=== PATIENT | male | born 1980 | race Caucasian/White ===

== ENCOUNTER 2017-12-20 00:45 | Inpatient (IN) | payer MEDICAID, OTHER ==
[~2017-12-20] VITALS: Ht 182.9 cm; Wt 99.3 kg
[2017-12-20] MEDS ORDERED: METOPROLOL TARTRATE 25 MG TAB ONE (01:17)
[2017-12-20 01:27] LABS: Basophils # (auto) 0 uL; Basophils % (auto) 0.5 % (0.0-2.0); Eosinophils # (auto) 0 uL; Eosinophils % (auto) 0.2 % (0.0-7.0); Hemoglobin 16.1 g/dL (13.5-17.5); Lymphocytes # (auto) 2.1 uL; Lymphocytes % (auto) 25.8 % (10.0-50.0); Mean Corpuscular Hemoglobin 31.2 pg (28.0-32.0); Mean Corpuscular Hgb Conc. 33.5 g/dL (32.0-36.0); Mean Corpuscular Volume 93.1 fL (80.0-100.0); Monocytes # (auto) 0.5 uL; Monocytes % (auto) 6.5 % (0.0-12.0); Neutrophils # (auto) 5.6 uL; Platelet Count (auto) 278 10^3/uL (140-450); Red Blood Cells 5.16 10^6/uL (4.5-5.90); Red Cell Distribution Width 15.2 % (11.8-14.3); White Blood Cell 8.3 10^3/uL (4.4-10.8)
[2017-12-20] MEDS ORDERED: METOPROLOL TARTRATE 50 MG TAB PO ONE (01:30)
[2017-12-20 01:44] LABS: INR 0.97 (0.9-1.15); Partial Thromboplastin Time 30.7 sec (22.64-33.71); Prothrombin Time 10.6 sec (9.37-12.3)
[2017-12-20 01:46] LABS: Alanine Aminotransferase 10 U/L (16-61); Albumin 3.8 g/dL (3.4-5.0); Anion Gap 27 (5-15); Aspartate Aminotransferase 5 U/L (15-37); BUN/Creatinine Ratio 9.9; Blood Urea Nitrogen 15 mg/dL (7-18); Calcium 8.7 mg/dL (8.5-10.1); Chloride 105 mmol/L (98-107); GFR African American 67 mL/min; GFR Non-African American 55 mL/min; Glucose 400 mg/dL (74-106); Potassium 3.4 mmol/L (3.5-5.1); Sodium 138 mmol/L (136-145)
[2017-12-20 01:47] LABS: Carbon Dioxide 6 mmol/L (21-32)
[2017-12-20 01:50] LABS: Alkaline Phosphatase 125 U/L (45-117); Bilirubin, Total 0.4 mg/dL (0.2-1.0); Total Protein 8.7 g/dL (6.4-8.2)
[2017-12-20] MEDS: InsuLIN R (HUMAN) 100 UNITS in SODIUM CHL 0.9% 99 ML IV SCH ×3 (01:54→13:47)
[2017-12-20] MEDS ORDERED: SODIUM CHLORIDE 0.9% 3,000 ML IV ONE (02:00)
[2017-12-20] MEDS ORDERED: DEXTROSE (50%) 50ML SYRG IV PRN ×2 (02:00→07:30)
[2017-12-20] MEDS ORDERED: SODIUM BICARBONATE 8.4 % INJ 50ML VIAL IV ONE (02:00)
[2017-12-20] MEDS ORDERED: POTASSIUM CHL 20MEQ/100ML 100 ML IV ONE (02:00)
[2017-12-20] MEDS ORDERED: InsuLIN REG 1unit/0.01ml Soln (100units/ml) ONE (02:09)
[2017-12-20] MEDS: ACCU-CHEK COMFORT CURVE STRIP VI SCH ×15 (03:23→22:36)
[2017-12-20 05:38] LABS: Urine WBC None Seen /hpf (0 - 3)
[2017-12-20 05:52] LABS: Urine Bacteria NONE SEEN /hpf (None Seen); Urine Blood Negative /uL (Negative); Urine Hyaline Cast FEW /lpf (0 - 2); Urine Specific Gravity 1.018 (1.001-1.035)
[2017-12-20] MEDS ORDERED: ONDANSETRON HCL 4 MG/2 ML VIAL ONE (06:39)
[2017-12-20] MEDS ORDERED: LACTULOSE 20Gm/30ML SOLN PO PRN (07:30)
[2017-12-20] MEDS ORDERED: HYDROcodone-ACET 5/325MG TAB PO PRN (07:30)
[2017-12-20] MEDS ORDERED: TEMAZEPAM 15 MG CAP PO PRN (07:30)
[2017-12-20] MEDS ORDERED: ACETAMINOPHEN 500 MG TAB PO PRN (07:30)
[2017-12-20] MEDS ORDERED: LORazepam 0.5 MG TAB PO PRN (07:30)
[2017-12-20] MEDS ORDERED: MORPHINE SULFATE 4 MG/ML SYR/VIAL IV PRN ×2 (07:30)
[2017-12-20] MEDS ORDERED: NITROGLYCERIN 0.4 MG SL TAB SL PRN (07:30)
[2017-12-20] MEDS ORDERED: PROMETHAZINE HCL 25 MG/ML 1ML IV PRN (07:30)
[2017-12-20] MEDS: SODIUM CHLORIDE 0.9% 1,000 ML IV SCH ×2 (07:32→08:59)
[2017-12-20 08:15] LABS: BUN/Creatinine Ratio 10.8; Potassium 3.7 mmol/L (3.5-5.1)
[2017-12-20] MEDS ORDERED: SODIUM CHLORIDE 0.9% 1,000 ML IV SCH ×2 (11:17→13:17)
[2017-12-20 14:11] LABS: BUN/Creatinine Ratio 8.7; Calcium 7.9 mg/dL (8.5-10.1); Potassium 3.4 mmol/L (3.5-5.1)
[2017-12-20] MEDS: SOD CHL 0.45% WITH 20MEQ KCL 1,000 ML IV SCH ×2 (15:38→22:43)
[2017-12-20 20:01] LABS: BUN/Creatinine Ratio 6.9; Potassium 3.2 mmol/L (3.5-5.1)
[2017-12-20] MEDS ORDERED: POTASSIUM PHOSPHATE 44 MEQ in D5W 5% 250 ML IV ONE (22:00)
[2017-12-21] MEDS: ACCU-CHEK COMFORT CURVE STRIP VI SCH ×6 (00:34→07:37)
[2017-12-21 01:56] LABS: BUN/Creatinine Ratio 5.8; Calcium 8.5 mg/dL (8.5-10.1)
[2017-12-21 02:06] LABS: Potassium 2.9 mmol/L (3.5-5.1)
[2017-12-21] MEDS: InsuLIN R (HUMAN) 100 UNITS in SODIUM CHL 0.9% 99 ML IV SCH (02:08)
[2017-12-21] MEDS ORDERED: POTASSIUM CHL 20 Meq TABLET PO ONE (02:45)
[2017-12-21 06:00] LABS: Basophils # (auto) 0 uL; Basophils % (auto) 0.9 % (0.0-2.0); Eosinophils # (auto) 0 uL; Eosinophils % (auto) 0.6 % (0.0-7.0); Lymphocytes # (auto) 1.6 uL; Lymphocytes % (auto) 32.1 % (10.0-50.0); Mean Corpuscular Hemoglobin 31.4 pg (28.0-32.0); Mean Corpuscular Hgb Conc. 34.3 g/dL (32.0-36.0); Mean Corpuscular Volume 91.4 fL (80.0-100.0); Monocytes # (auto) 0.5 uL; Monocytes % (auto) 10.5 % (0.0-12.0); Neutrophils # (auto) 2.8 uL; Neutrophils % (auto) 55.9 % (37.0-80.0); Nucleated Red Blood Cells % 0.1 %; Platelet Count (auto) 197 10^3/uL (140-450); Red Blood Cells 4.15 10^6/uL (4.5-5.90); Red Cell Distribution Width 15.7 % (11.8-14.3)
[2017-12-21 06:27] LABS: Alanine Aminotransferase 9 U/L (16-61); Albumin 2.7 g/dL (3.4-5.0); Alkaline Phosphatase 82 U/L (45-117); Anion Gap 13 (5-15); Aspartate Aminotransferase < 3 U/L (15-37); BUN/Creatinine Ratio 7.1; Bilirubin, Total 0.4 mg/dL (0.2-1.0); Blood Urea Nitrogen 6 mg/dL (7-18); Carbon Dioxide 15 mmol/L (21-32); Chloride 115 mmol/L (98-107); Cholesterol 194 mg/dL (< 200); GFR African American 132 mL/min; GFR Non-African American 109 mL/min; Glucose 194 mg/dL (74-106); HDL Cholesterol 28 mg/dL (40-59); LDL Cholesterol 141 mg/dL (< 100); Phosphorus 1.2 mg/dL (2.5-4.90); Sodium 143 mmol/L (136-145); Total Protein 6.4 g/dL (6.4-8.2); Triglycerides 158 mg/dL (< 150)
[2017-12-21] MEDS: SOD CHL 0.45% WITH 20MEQ KCL 1,000 ML IV SCH (07:37)
[2017-12-21] MEDS ORDERED: POTASSIUM PHOSPHATE 44 MEQ in D5W 5% 250 ML IV ONE (08:30)
[2017-12-21] MEDS ORDERED: DEXTROSE (50%) 50ML SYRG IV PRN (08:30)
[2017-12-21] MEDS ORDERED: INSULIN LANTUS (GLARGINE) 1 /0.01ml (100units/ml) SC ONE (08:30)
[2017-12-21] MEDS ORDERED: ACCU-CHEK COMFORT CURVE STRIP VI SCH (11:30)
[2017-12-21] MEDS: InsuLIN REG 1unit/0.01ml Soln (100units/ml) SC SCH ×3 (11:40→21:12)
[2017-12-21 17:20] VITALS: BP 122/76
[2017-12-21] MEDS ORDERED: metFORMIN HYDROCHLORIDE 500 MG TAB PO SCH (18:00)
[2017-12-21] MEDS ORDERED: INSULIN LANTUS (GLARGINE) 1 /0.01ml (100units/ml) SC SCH (22:00)
[2017-12-21] MEDS ORDERED: ATORVASTATIN 20 MG TAB PO SCH (22:00)
[2017-12-21] MEDS ORDERED: InsuLIN REG 1unit/0.01ml Soln (100units/ml) SC SCH (22:00)
[2017-12-21 22:07] VITALS: BP 120/71
[2017-12-22 05:00] VITALS: BP_SYST 109; BP_SYST 150; BP_DIAS 60; BP_DIAS 78
[2017-12-22 05:21] LABS: Basophils # (auto) 0 uL; Basophils % (auto) 0.4 % (0.0-2.0); Eosinophils # (auto) 0 uL; Eosinophils % (auto) 0.9 % (0.0-7.0); Hematocrit 38.3 % (41.0-53.0); Hemoglobin 13.1 g/dL (13.5-17.5); Lymphocytes # (auto) 1.8 uL; Lymphocytes % (auto) 43.1 % (10.0-50.0); Mean Corpuscular Hemoglobin 30.8 pg (28.0-32.0); Mean Corpuscular Hgb Conc. 34.1 g/dL (32.0-36.0); Mean Corpuscular Volume 90.3 fL (80.0-100.0); Monocytes # (auto) 0.5 uL; Monocytes % (auto) 10.8 % (0.0-12.0); Neutrophils # (auto) 1.9 uL; Neutrophils % (auto) 44.8 % (37.0-80.0); Nucleated Red Blood Cells % 0.2 %; Platelet Count (auto) 193 10^3/uL (140-450); Red Blood Cells 4.25 10^6/uL (4.5-5.90); Red Cell Distribution Width 15.7 % (11.8-14.3); White Blood Cell 4.2 10^3/uL (4.4-10.8)
[2017-12-22 05:41] LABS: BUN/Creatinine Ratio 6.5; Calcium 8.7 mg/dL (8.5-10.1); Potassium 3.3 mmol/L (3.5-5.1)
[2017-12-22 06:16] LABS: Phosphorus 2.4 mg/dL (2.5-4.90)
[2017-12-22] MEDS ORDERED: INSULIN LANTUS (GLARGINE) 1 /0.01ml (100units/ml) SC SCH (07:00)
[2017-12-22] MEDS ORDERED: metFORMIN HYDROCHLORIDE 500 MG TAB PO SCH (08:00)
[2017-12-22] MEDS ORDERED: POTASSIUM PHOSPHATE 26.4 MEQ in SODIUM CHL 0.9% 100 ML IV ONE (08:00)
[2017-12-22 08:15] VITALS: BP 108/61
[2017-12-22] MEDS ORDERED: METF500T PO (08:29)
[2017-12-22] MEDS ORDERED: ATOR20TA50 PO (08:29)
[2017-12-22 11:47] VITALS: BP 113/66
[2017-12-22] MEDS: InsuLIN REG 1unit/0.01ml Soln (100units/ml) SC SCH (12:14)
== END 2017-12-22 15:45 | disposition home or self-care (01) | DRG 420 ==
LOC: ER 00:47 → TELE 00:48 → TELE-WESTW 12-21 15:40 → WEST WING 12-21 15:48
PROVIDERS: ADMIT Nurse Practitioner; ATTEND Internal Medicine
DX: E11.10 Type 2 diabetes mellitus with ketoacidosis without coma (principal); N17.0 Acute kidney failure with tubular necrosis; E87.0 Hyperosmolality and hypernatremia; E86.0 Dehydration; E83.39 Other disorders of phosphorus metabolism; E87.6 Hypokalemia; K59.00 Constipation, unspecified; F41.9 Anxiety disorder, unspecified; G47.00 Insomnia, unspecified; Z82.49 Family history of ischemic heart disease and other diseases of the circulatory system; Z83.3 Family history of diabetes mellitus
CPT/HCPCS: 36415; 36600; 71045; 80048; 80053; 80061; 81001; 82010; 82805; 82962; 83036; 83880; 84100; 84484; 85025; 85610; 85730; 93005; 96361; 96374; J1815; J2405; J3480; J7060

== ENCOUNTER 2022-03-26 12:14 | Inpatient (IN) | payer MEDICAID ==
[~2022-03-26] VITALS: Ht 182.9 cm; Wt 111.5 kg
[~2022-03-26 12:14] MED LIST: ATOR20TA50 PO; METF500T PO
[2022-03-26 14:29] LABS: Basophils # (auto) 0.1 10 ^3/uL (0-0.2); Basophils % (auto) 0.8 % (0.0-2.0); Eosinophils # (auto) 0.1 10 ^3/uL (0-0.8); Eosinophils % (auto) 1.6 % (0.0-7.0); Hematocrit 44.4 % (41.0-53.0); Lymphocytes % (auto) 29.1 % (10.0-50.0); Mean Corpuscular Hemoglobin 28.8 pg (28.0-32.0); Mean Corpuscular Hgb Conc. 33.8 g/dL (32.0-36.0); Mean Corpuscular Volume 85.2 fL (80.0-100.0); Monocytes # (auto) 0.4 10 ^3/uL (0-1.3); Monocytes % (auto) 5.6 % (0.0-12.0); Neutrophils # (auto) 4.3 10 ^3/uL (1.6-8.6); Neutrophils % (auto) 62.9 % (37.0-80.0); Red Blood Cells 5.21 10^6/uL (4.5-5.90); Red Cell Distribution Width 13.9 % (11.8-14.3); White Blood Cell 6.8 10^3/uL (4.4-10.8)
[2022-03-26 14:46] LABS: Albumin 3.7 g/dL (3.4-5.0); Calcium 8.7 mg/dL (8.5-10.1); Potassium 4.1 mmol/L (3.5-5.1)
[2022-03-26 14:49] LABS: Lactic Acid w/Reflex 2.3 mmol/L (0.4-2.0)
[2022-03-26 14:56] LABS: BUN/Creatinine Ratio 12.2; Bilirubin, Total 0.5 mg/dL (0.2-1.0); CRP High Sensitivity 1.03 mg/dL (< 0.3); Total Protein 8.2 g/dL (6.4-8.2)
[2022-03-26] MEDS ORDERED: SODIUM CHLORIDE 0.9% 1,000 ML IV ONE (19:15)
[2022-03-26] MEDS ORDERED: VANCOMYCIN 1GM/250ML 250 ML IV ONE (19:15)
[2022-03-26] MEDS: PIPERACILLIN-TAZOB 3.375GM 100 ML IV SCH (19:30)
[2022-03-26] MEDS ORDERED: VANCOMYCIN PER PHARMACY 0 MG IV SCH (19:30)
[2022-03-26] MEDS ORDERED: MORPHINE SULFATE INJECTION 2 MG/ML SYRG IV PRN (19:30)
[2022-03-26] MEDS ORDERED: HYDROcodone-ACET 5/325MG TAB PO PRN (19:30)
[2022-03-26] MEDS ORDERED: ONDANSETRON HCL 4 MG/2 ML VIAL IV PRN (19:30)
[2022-03-26] MEDS ORDERED: DOCUSATE SOD 100 MG CAP PO PRN (19:30)
[2022-03-26] MEDS ORDERED: ACETAMINOPHEN 325 MG TAB PO PRN (19:30)
[2022-03-26] MEDS: SODIUM CHLORIDE 0.9% 1,000 ML IV SCH (20:30)
[2022-03-27 01:40] VITALS: BP 134/84
[2022-03-27] MEDS ORDERED: METF-372 PO (01:50)
[2022-03-27] MEDS ORDERED: GLIP10TA9 PO (01:50)
[2022-03-27] MEDS ORDERED: INSU1INJ19 SC (01:50)
[2022-03-27 05:15] VITALS: BP 127/73
[2022-03-27] MEDS: PIPERACILLIN-TAZOB 3.375GM 100 ML IV SCH ×5 (05:40→23:55)
[2022-03-27 09:00] VITALS: BP 147/84
[2022-03-27] MEDS: VANCOMYCIN 1GM/250ML 250 ML IV SCH ×2 (10:21→17:23)
[2022-03-27] MEDS: ENOXAPARIN SOD 40 MG/0.4 ML SYRINGE SC SCH (10:21)
[2022-03-27] MEDS ORDERED: DEXTROSE (50%) 50ML SYRG IV PRN (12:15)
[2022-03-27 13:00] VITALS: BP 130/82
[2022-03-27] MEDS: ACCU-CHEK COMFORT CURVE STRIP VI SCH ×2 (17:23→22:00)
[2022-03-27] MEDS: InsuLIN REG 1unit/0.01ml Soln (100units/ml) SC SCH ×2 (17:26→22:04)
[2022-03-27 18:00] VITALS: BP 143/79
[2022-03-27] MEDS: SODIUM CHLORIDE 0.9% 1,000 ML IV SCH ×3 (20:30→23:55)
[2022-03-27 22:00] VITALS: BP 120/84
[2022-03-27] MEDS: INSULIN LANTUS (GLARGINE) 1 /0.01ml (100units/ml) SC SCH (22:04)
[2022-03-28] MEDS: VANCOMYCIN 1GM/250ML 250 ML IV SCH (01:56)
[2022-03-28 05:00] VITALS: BP 133/78
[2022-03-28] MEDS: PIPERACILLIN-TAZOB 3.375GM 100 ML IV SCH (05:32)
[2022-03-28] MEDS: ACCU-CHEK COMFORT CURVE STRIP VI SCH ×4 (05:57→21:27)
[2022-03-28] MEDS: InsuLIN REG 1unit/0.01ml Soln (100units/ml) SC SCH ×4 (05:59→21:25)
[2022-03-28 09:00] VITALS: BP 109/47
[2022-03-28] MEDS: ENOXAPARIN SOD 40 MG/0.4 ML SYRINGE SC SCH (10:00)
[2022-03-28] MEDS: SODIUM CHLORIDE 0.9% 1,000 ML IV SCH ×2 (12:14→21:30)
[2022-03-28 12:30] VITALS: BP 124/88
[2022-03-28] MEDS ORDERED: VANCOMYCIN 1,250 MG in D5W 5% 250 ML IV SCH (13:00)
[2022-03-28] MEDS ORDERED: AMOX-277 PO (13:26)
[2022-03-28 17:00] VITALS: BP 114/81
[2022-03-28] MEDS: AMOXICILLIN/CLAVUL 875 MG TAB PO SCH (18:00)
[2022-03-28] MEDS: INSULIN LANTUS (GLARGINE) 1 /0.01ml (100units/ml) SC SCH (21:26)
[2022-03-28 22:00] VITALS: BP 144/82
[2022-03-29 05:00] VITALS: BP 116/72
[2022-03-29] MEDS: SODIUM CHLORIDE 0.9% 1,000 ML IV SCH ×2 (05:49→14:10)
[2022-03-29] MEDS: InsuLIN REG 1unit/0.01ml Soln (100units/ml) SC SCH ×3 (06:35→17:00)
[2022-03-29] MEDS: ACCU-CHEK COMFORT CURVE STRIP VI SCH ×3 (06:36→17:00)
[2022-03-29] MEDS: AMOXICILLIN/CLAVUL 875 MG TAB PO SCH ×2 (08:00→18:00)
[2022-03-29 09:00] VITALS: BP 129/55
[2022-03-29 09:58] LABS: Albumin 2.8 g/dL (3.4-5.0); Potassium 3.8 mmol/L (3.5-5.1)
[2022-03-29] MEDS: ENOXAPARIN SOD 40 MG/0.4 ML SYRINGE SC SCH (10:00)
[2022-03-29 10:03] LABS: BUN/Creatinine Ratio 12.7; Bilirubin, Total 0.5 mg/dL (0.2-1.0); Total Protein 6.4 g/dL (6.4-8.2)
[2022-03-29 13:19] VITALS: BP 159/85
[2022-03-29 17:00] VITALS: BP 116/69
[2022-03-29 20:10] VITALS: BP 147/87
== END 2022-03-29 21:08 | disposition home or self-care (01) | DRG 380 ==
LOC: ER 12:14 → OVERFLOW 19:26 → WEST WING 22:41
PROVIDERS: ADMIT Internal Medicine; ATTEND Internal Medicine
DX: E11.621 Type 2 diabetes mellitus with foot ulcer (principal); L97.519 Non-pressure chronic ulcer of other part of right foot with unspecified severity; E87.2 Acidosis; L03.115 Cellulitis of right lower limb; Z20.822 Contact with and (suspected) exposure to COVID-19; Z79.4 Long term (current) use of insulin; Z82.49 Family history of ischemic heart disease and other diseases of the circulatory system; Z83.3 Family history of diabetes mellitus
CPT/HCPCS: 36415; 73700; 73718; 80053; 80202; 82565; 82962; 83605; 85025; 85652; 86141; 87040; 96365; G0378; J1815; J2543; J7060

== ENCOUNTER 2022-11-15 05:36 | Inpatient (IN) | payer MEDICAID ==
[~2022-11-15] VITALS: Ht 182.9 cm; Wt 106.2 kg
[~2022-11-15 05:36] MED LIST changes: +AMOX-277 PO; +GLIP10TA9 PO; +INSU1INJ19 SC; +METF-372 PO
[2022-11-15] MEDS ORDERED: ONDANSETRON HCL 4 MG/2 ML VIAL ONE (06:17)
[2022-11-15] MEDS ORDERED: ONDANSETRON HCL 4 MG/2 ML VIAL IM ONE (06:30)
[2022-11-15] MEDS ORDERED: INSULIN LANTUS (GLARGINE) 1 /0.01ml (100units/ml) SC ONE (07:00)
[2022-11-15] MEDS ORDERED: DEXTROSE (50%) 50ML SYRG IV PRN ×2 (07:00→20:45)
[2022-11-15] MEDS ORDERED: InsuLIN R (HUMAN) 100 UNITS in SODIUM CHL 0.9% 99 ML IV SCH (07:00)
[2022-11-15] MEDS ORDERED: SODIUM CHLORIDE 0.9% 1,000 ML IV ONE ×2 (07:00)
[2022-11-15 07:29] LABS: Basophils # (auto) 0.1 10 ^3/uL (0-0.2); Basophils % (auto) 0.9 % (0.0-2.0); Eosinophils # (auto) 0 10 ^3/uL (0-0.8); Eosinophils % (auto) 0.4 % (0.0-7.0); Hemoglobin 15.5 g/dL (13.5-17.5); Lymphocytes # (auto) 1.3 10 ^3/uL (0.4-5.4); Mean Corpuscular Hemoglobin 29.9 pg (28.0-32.0); Mean Corpuscular Hgb Conc. 33.8 g/dL (32.0-36.0); Mean Corpuscular Volume 88.7 fL (80.0-100.0); Monocytes # (auto) 0.6 10 ^3/uL (0-1.3); Monocytes % (auto) 7.3 % (0.0-12.0); Neutrophils # (auto) 5.8 10 ^3/uL (1.6-8.6); Neutrophils % (auto) 74.4 % (37.0-80.0); Nucleated Red Blood Cells % 0.1 %; Red Blood Cells 5.18 10^6/uL (4.5-5.90); Red Cell Distribution Width 14.9 % (11.8-14.3); White Blood Cell 7.8 10^3/uL (4.4-10.8)
[2022-11-15 07:33] LABS: Alanine Aminotransferase 16 U/L (16-61); Albumin 3.8 g/dL (3.4-5.0); Anion Gap 18 (5-15); Aspartate Aminotransferase < 3 U/L (15-37); BUN/Creatinine Ratio 13.4; Blood Urea Nitrogen 15 mg/dL (7-18); Calcium 8.4 mg/dL (8.5-10.1); Carbon Dioxide 14 mmol/L (21-32); Chloride 106 mmol/L (98-107); GFR African American 92 mL/min; GFR Non-African American 76 mL/min; Glucose 327 mg/dL (74-106); Potassium 3.7 mmol/L (3.5-5.1); Sodium 138 mmol/L (136-145)
[2022-11-15 07:36] LABS: Alkaline Phosphatase 106 U/L (45-117); Bilirubin, Total 0.6 mg/dL (0.2-1.0); Total Protein 7.4 g/dL (6.4-8.2)
[2022-11-15] MEDS: ACCU-CHEK COMFORT CURVE STRIP VI SCH ×10 (07:47→22:15)
[2022-11-15] MEDS ORDERED: MORPHINE SULFATE INJ 2 MG/ml SYRG IV PRN (09:15)
[2022-11-15] MEDS ORDERED: NITROGLYCERIN 0.4 MG SL TAB SL PRN (09:15)
[2022-11-15] MEDS ORDERED: D5W/SOD CHL 0.9%/KCL 40MEQ 1,000 ML IV ONE (09:15)
[2022-11-15 10:17] LABS: Cholesterol 264 mg/dL (< 200); HDL Cholesterol 35 mg/dL (40-59); Triglycerides 559 mg/dL (< 150)
[2022-11-15] MEDS: PANTOPRAZOLE 40 MG/10 ML VIAL INJ IV SCH (11:37)
[2022-11-15] MEDS: ENOXAPARIN SOD 40 MG/0.4 ML SYRINGE SC SCH (11:37)
[2022-11-15 12:35] LABS: BUN/Creatinine Ratio 12.7; Calcium 7.9 mg/dL (8.5-10.1); Potassium 4.2 mmol/L (3.5-5.1)
[2022-11-15 14:31] LABS: Urine Bacteria NONE SEEN /hpf (None Seen); Urine Blood TRACE /uL (Negative); Urine WBC 2 /hpf (0 - 3)
[2022-11-15] MEDS: ONDANSETRON HCL 4 MG/2 ML VIAL IV PRN (18:47)
[2022-11-15 19:16] LABS: Calcium 8.1 mg/dL (8.5-10.1); Potassium 4.1 mmol/L (3.5-5.1)
[2022-11-15 19:19] LABS: BUN/Creatinine Ratio 7.4
[2022-11-15] MEDS ORDERED: SOD CHL 0.45% 1,000 ML IV SCH (20:45)
[2022-11-15] MEDS: InsuLIN REG 1unit/0.01ml Soln (100units/ml) SC SCH (22:19)
[2022-11-16 01:00] LABS: BUN/Creatinine Ratio 7.1; Calcium 8.2 mg/dL (8.5-10.1); Potassium 3.9 mmol/L (3.5-5.1)
[2022-11-16] MEDS: ONDANSETRON HCL 4 MG/2 ML VIAL IV PRN ×2 (01:09→22:05)
[2022-11-16] MEDS: ACCU-CHEK COMFORT CURVE STRIP VI SCH ×4 (06:36→22:07)
[2022-11-16] MEDS: InsuLIN REG 1unit/0.01ml Soln (100units/ml) SC SCH ×4 (06:40→21:59)
[2022-11-16 07:20] LABS: BUN/Creatinine Ratio 7.1; Calcium 8.6 mg/dL (8.5-10.1); Potassium 3.7 mmol/L (3.5-5.1)
[2022-11-16 07:27] LABS: Basophils # (auto) 0 10 ^3/uL (0-0.2); Basophils % (auto) 0.4 % (0.0-2.0); Eosinophils # (auto) 0 10 ^3/uL (0-0.8); Hemoglobin 13.8 g/dL (13.5-17.5); Lymphocytes # (auto) 1.2 10 ^3/uL (0.4-5.4); Lymphocytes % (auto) 17.4 % (10.0-50.0); Mean Corpuscular Hemoglobin 29.8 pg (28.0-32.0); Mean Corpuscular Hgb Conc. 33.6 g/dL (32.0-36.0); Mean Corpuscular Volume 88.6 fL (80.0-100.0); Monocytes # (auto) 0.5 10 ^3/uL (0-1.3); Monocytes % (auto) 7.9 % (0.0-12.0); Neutrophils # (auto) 5.1 10 ^3/uL (1.6-8.6); Neutrophils % (auto) 74.3 % (37.0-80.0); Nucleated Red Blood Cells % 0.1 %; Red Blood Cells 4.63 10^6/uL (4.5-5.90); Red Cell Distribution Width 15.3 % (11.8-14.3); White Blood Cell 6.9 10^3/uL (4.4-10.8)
[2022-11-16] MEDS ORDERED: INSULIN LANTUS (GLARGINE) 1 /0.01ml (100units/ml) SC SCH ×2 (10:00→22:00)
[2022-11-16] MEDS: ENOXAPARIN SOD 40 MG/0.4 ML SYRINGE SC SCH (10:05)
[2022-11-16] MEDS: PANTOPRAZOLE 40 MG/10 ML VIAL INJ IV SCH (10:05)
[2022-11-16] MEDS ORDERED: SOD CHL 0.45% WITH 20MEQ KCL 1,000 ML IV SCH (11:45)
[2022-11-16] MEDS ORDERED: INSULIN NPH Isophane (HUMAN) 1unit/0.01ml Susp(100units/ml) SC ONE (11:45)
[2022-11-16 12:55] LABS: BUN/Creatinine Ratio 5.7; Calcium 8.3 mg/dL (8.5-10.1); Potassium 3.5 mmol/L (3.5-5.1)
[2022-11-16 16:01] VITALS: BP 129/76
[2022-11-16 17:07] VITALS: BP 129/76
[2022-11-16] MEDS: SOD CHL 0.45% WITH 20MEQ KCL 1,000 ML IV SCH (17:53)
[2022-11-16 18:23] VITALS: BP 129/76
[2022-11-16 19:10] LABS: BUN/Creatinine Ratio 6.7; Calcium 8.6 mg/dL (8.5-10.1); Potassium 3.4 mmol/L (3.5-5.1)
[2022-11-16 22:00] VITALS: BP 126/71
[2022-11-16] MEDS ORDERED: ATORVASTATIN 20 MG TAB PO SCH (22:00)
[2022-11-17 05:00] VITALS: BP 134/80
[2022-11-17] MEDS: SOD CHL 0.45% WITH 20MEQ KCL 1,000 ML IV SCH (05:50)
[2022-11-17] MEDS: InsuLIN REG 1unit/0.01ml Soln (100units/ml) SC SCH ×2 (06:29→11:10)
[2022-11-17] MEDS: ACCU-CHEK COMFORT CURVE STRIP VI SCH ×2 (06:40→11:09)
[2022-11-17 09:00] VITALS: BP 154/84
[2022-11-17] MEDS: ENOXAPARIN SOD 40 MG/0.4 ML SYRINGE SC SCH (10:38)
[2022-11-17] MEDS ORDERED: ASPI81CH49 PO (14:49)
[2022-11-17] MEDS ORDERED: ATOR20TA50 PO (14:49)
[2022-11-17] MEDS ORDERED: INSU100I49 SC (14:49)
[2022-11-17] MEDS ORDERED: INSLANTI SC (14:49)
[2022-11-17] MEDS ORDERED: METF-370 PO (14:49)
[2022-11-17] MEDS ORDERED: ATO40T PO (14:51)
== END 2022-11-17 17:11 | disposition home or self-care (01) | DRG 420 ==
LOC: ER 05:36 → TELE 09:11 → TELE-WESTW 11-16 15:58
PROVIDERS: ADMIT Registered Nurse; ATTEND Student in an Organized Health Care Education/Training Program
DX: E11.10 Type 2 diabetes mellitus with ketoacidosis without coma (principal); E66.01 Morbid (severe) obesity due to excess calories; E78.5 Hyperlipidemia, unspecified; Z20.822 Contact with and (suspected) exposure to COVID-19; E78.1 Pure hyperglyceridemia; Z91.14 Patient's other noncompliance with medication regimen; Z79.4 Long term (current) use of insulin; Z82.49 Family history of ischemic heart disease and other diseases of the circulatory system; Z83.3 Family history of diabetes mellitus; Z68.31 Body mass index [BMI] 31.0-31.9, adult
CPT/HCPCS: 36415; 36600; 71045; 80048; 80053; 80061; 81001; 82010; 82805; 82962; 83036; 84443; 85025; 87040; 87086; 87426; 96360; 96361; 96372; 99291; C9113; G0378; J1815; J2405

== ENCOUNTER 2022-12-01 22:01 | Inpatient (IN) | payer MEDICAID ==
[~2022-12-01] VITALS: Ht 182.9 cm; Wt 104.5 kg
[~2022-12-01 22:01] MED LIST changes: +ASPI81CH49 PO; +ATO40T PO; +INSLANTI SC; +INSU100I49 SC; +METF-370 PO
[2022-12-01] MEDS ORDERED: ONDANSETRON ODT 4 MG TAB PO ONE (22:30)
[2022-12-01 23:15] LABS: Basophils # (auto) 0 10 ^3/uL (0-0.2); Basophils % (auto) 0.1 % (0.0-2.0); Eosinophils # (auto) 0.2 10 ^3/uL (0-0.8); Eosinophils % (auto) 1.4 % (0.0-7.0); Hematocrit 49.8 % (41.0-53.0); Hemoglobin 16.6 g/dL (13.5-17.5); Lymphocytes # (auto) 1.8 10 ^3/uL (0.4-5.4); Lymphocytes % (auto) 16.9 % (10.0-50.0); Mean Corpuscular Hgb Conc. 33.3 g/dL (32.0-36.0); Mean Corpuscular Volume 90.3 fL (80.0-100.0); Monocytes # (auto) 0.9 10 ^3/uL (0-1.3); Monocytes % (auto) 8.7 % (0.0-12.0); Neutrophils # (auto) 7.8 10 ^3/uL (1.6-8.6); Neutrophils % (auto) 72.9 % (37.0-80.0); Nucleated Red Blood Cells % 0.1 %; Red Blood Cells 5.51 10^6/uL (4.5-5.90); Red Cell Distribution Width 14.2 % (11.8-14.3); White Blood Cell 10.7 10^3/uL (4.4-10.8)
[2022-12-01 23:24] LABS: INR 0.98 (0.9-1.15); Partial Thromboplastin Time 26.4 sec (24.6-33.4)
[2022-12-01 23:26] LABS: Albumin 3.5 g/dL (3.4-5.0); BUN/Creatinine Ratio 14.1; Calcium 8.5 mg/dL (8.5-10.1); Magnesium 1.3 mg/dL (1.6-2.6); Potassium 3.7 mmol/L (3.5-5.1)
[2022-12-01 23:28] LABS: Lactic Acid w/Reflex 3.2 mmol/L (0.4-2.0)
[2022-12-01 23:29] LABS: Bilirubin, Total 0.6 mg/dL (0.2-1.0); Total Protein 7.5 g/dL (6.4-8.2)
[2022-12-01] MEDS ORDERED: InsuLIN REG 1unit/0.01ml Soln (100units/ml) SC ONE (23:30)
[2022-12-01] MEDS ORDERED: SODIUM CHLORIDE 0.9% 1,000 ML IV ONE ×2 (23:30)
[2022-12-02] MEDS ORDERED: InsuLIN R (HUMAN) 100 UNITS in SODIUM CHL 0.9% 99 ML IV SCH ×2
[2022-12-02] MEDS: ACCU-CHEK COMFORT CURVE STRIP VI SCH ×13 (00:36→21:48)
[2022-12-02] MEDS ORDERED: DOCUSATE SOD 100 MG CAP PO PRN (01:15)
[2022-12-02] MEDS ORDERED: HYDROcodone-ACET 5/325MG TAB PO PRN (01:15)
[2022-12-02] MEDS ORDERED: ACETAMINOPHEN 325 MG TAB PO PRN (01:15)
[2022-12-02] MEDS ORDERED: ONDANSETRON HCL 4 MG/2 ML VIAL IV PRN (01:15)
[2022-12-02 01:51] LABS: Anion Gap 17 (5-15); Calcium 7.4 mg/dL (8.5-10.1); Carbon Dioxide 16 mmol/L (21-32); Chloride 105 mmol/L (98-107); Potassium 4.6 mmol/L (3.5-5.1); Sodium 138 mmol/L (136-145)
[2022-12-02 01:56] LABS: BUN/Creatinine Ratio 18.6; Blood Urea Nitrogen 27 mg/dL (7-18); GFR African American 69 mL/min; GFR Non-African American 57 mL/min
[2022-12-02 02:20] LABS: Glucose 452 mg/dL (74-106)
[2022-12-02] MEDS ORDERED: NITROGLYCERIN 0.4 MG SL TAB SL PRN (02:30)
[2022-12-02] MEDS ORDERED: MORPHINE SULFATE INJ 2 MG/ml SYRG IV PRN (02:30)
[2022-12-02] MEDS ORDERED: NOREPINEPHRINE 8 MG/250ML KIT 250 ML IV SCH (02:30)
[2022-12-02] MEDS: SODIUM CHLORIDE 0.9% 1,000 ML IV SCH ×5 (02:35→20:56)
[2022-12-02 07:36] LABS: Basophils # (auto) 0 10 ^3/uL (0-0.2); Basophils % (auto) 0.2 % (0.0-2.0); Eosinophils # (auto) 0.3 10 ^3/uL (0-0.8); Eosinophils % (auto) 2.4 % (0.0-7.0); Hematocrit 46.4 % (41.0-53.0); Hemoglobin 14.8 g/dL (13.5-17.5); Lymphocytes # (auto) 2.2 10 ^3/uL (0.4-5.4); Lymphocytes % (auto) 19.1 % (10.0-50.0); Mean Corpuscular Hemoglobin 29.3 pg (28.0-32.0); Mean Corpuscular Hgb Conc. 31.9 g/dL (32.0-36.0); Mean Corpuscular Volume 91.9 fL (80.0-100.0); Monocytes # (auto) 1.1 10 ^3/uL (0-1.3); Monocytes % (auto) 9.3 % (0.0-12.0); Neutrophils # (auto) 7.8 10 ^3/uL (1.6-8.6); Nucleated Red Blood Cells % 0.1 %; Red Blood Cells 5.05 10^6/uL (4.5-5.90); Red Cell Distribution Width 14.5 % (11.8-14.3); White Blood Cell 11.3 10^3/uL (4.4-10.8)
[2022-12-02 08:06] LABS: Lactic Acid w/Reflex 2.9 mmol/L (0.4-2.0)
[2022-12-02 08:52] LABS: Alanine Aminotransferase 15 U/L (16-61); Albumin 2.9 g/dL (3.4-5.0); Alkaline Phosphatase 95 U/L (45-117); Anion Gap 16 (5-15); Aspartate Aminotransferase 25 U/L (15-37); BUN/Creatinine Ratio 21.8; Bilirubin, Total 0.5 mg/dL (0.2-1.0); Blood Urea Nitrogen 27 mg/dL (7-18); Calcium 7.5 mg/dL (8.5-10.1); Carbon Dioxide 17 mmol/L (21-32); Chloride 107 mmol/L (98-107); GFR African American 82 mL/min; GFR Non-African American 68 mL/min; Glucose 270 mg/dL (74-106); Potassium 4.2 mmol/L (3.5-5.1); Sodium 140 mmol/L (136-145); Total Protein 6.6 g/dL (6.4-8.2)
[2022-12-02 09:44] LABS: Cholesterol 102 mg/dL (< 200); Triglycerides 237 mg/dL (< 150)
[2022-12-02 09:46] LABS: HDL Cholesterol 26 mg/dL (40-59); LDL Cholesterol 53 mg/dL (< 100)
[2022-12-02] MEDS: FAMOTIDINE (10MG/ML) 2ML VL IV SCH (10:00)
[2022-12-02] MEDS: ASPirin 81 mg TAB PO SCH (10:00)
[2022-12-02 13:05] LABS: BUN/Creatinine Ratio 28.4; Calcium 7.1 mg/dL (8.5-10.1)
[2022-12-02 13:10] LABS: Potassium 2.9 mmol/L (3.5-5.1)
[2022-12-02] MEDS ORDERED: INSULIN LANTUS (GLARGINE) 1 /0.01ml (100units/ml) SC ONE (14:15)
[2022-12-02] MEDS ORDERED: POTASSIUM EFFERVESENT TAB 25 MEQ PO ONE (14:15)
[2022-12-02] MEDS: POTASSIUM CHL 20MEQ/100ML 100 ML IV SCH ×2 (14:50→18:01)
[2022-12-02] MEDS ORDERED: SODIUM CHLORIDE 0.9% 500 ML IV ONE (15:15)
[2022-12-02] MEDS ORDERED: InsuLIN REG 1unit/0.01ml Soln (100units/ml) SC SCH ×3 (17:00→22:00)
[2022-12-02] MEDS ORDERED: ACCU-CHEK COMFORT CURVE STRIP VI SCH (17:00)
[2022-12-02 19:35] LABS: BUN/Creatinine Ratio 27.4; Calcium 6.8 mg/dL (8.5-10.1); Potassium 3.6 mmol/L (3.5-5.1)
[2022-12-02] MEDS ORDERED: DEXTROSE (50%) 50ML SYRG IV PRN ×2 (20:45)
[2022-12-02 22:12] LABS: Urine Bacteria NONE SEEN /hpf (None Seen); Urine Blood Negative /uL (Negative); Urine Mucus FEW (None Seen); Urine Specific Gravity 1.026 (1.001-1.035); Urine WBC 60 /hpf (0 - 3)
[2022-12-02 22:23] LABS: Amphetamine Screen, Urine NEGATIVE (NEGATIVE); Barbiturate Scree,Urine NEGATIVE (NEGATIVE); Benzodiazephine Screen, Urine NEGATIVE (NEGATIVE); Cannabinoid Screen, Urine NEGATIVE (NEGATIVE); Cocaine Screen, Urine NEGATIVE (NEGATIVE); Opiate Scree,Urine NEGATIVE (NEGATIVE); Phencyclidine Screen, Urine NEGATIVE (NEGATIVE)
[2022-12-03] MEDS ORDERED: INFLUENZA QUAD 2022-2023 0.5 ML SYRG IM ONE (03:30)
[2022-12-03] MEDS ORDERED: PNEUMOCOCCAL VACC POLYS 25 MCG/0.5 ML VIAL IM ONE (03:30)
[2022-12-03] MEDS: SODIUM CHLORIDE 0.9% 1,000 ML IV SCH ×3 (03:54→12:46)
[2022-12-03] MEDS: ACCU-CHEK COMFORT CURVE STRIP VI SCH ×3 (06:59→17:00)
[2022-12-03] MEDS: InsuLIN REG 1unit/0.01ml Soln (100units/ml) SC SCH ×3 (07:00→17:00)
[2022-12-03 08:26] LABS: Basophils # (auto) 0 10 ^3/uL (0-0.2); Basophils % (auto) 0.1 % (0.0-2.0); Eosinophils # (auto) 0.5 10 ^3/uL (0-0.8); Hematocrit 35.5 % (41.0-53.0); Hemoglobin 12.1 g/dL (13.5-17.5); Lymphocytes # (auto) 2.5 10 ^3/uL (0.4-5.4); Mean Corpuscular Hemoglobin 30.5 pg (28.0-32.0); Mean Corpuscular Hgb Conc. 34.2 g/dL (32.0-36.0); Mean Corpuscular Volume 89.2 fL (80.0-100.0); Monocytes # (auto) 0.4 10 ^3/uL (0-1.3); Monocytes % (auto) 6.6 % (0.0-12.0); Neutrophils # (auto) 2.4 10 ^3/uL (1.6-8.6); Neutrophils % (auto) 42.3 % (37.0-80.0); Nucleated Red Blood Cells % 0.2 %; Red Blood Cells 3.98 10^6/uL (4.5-5.90); Red Cell Distribution Width 14.6 % (11.8-14.3); White Blood Cell 5.8 10^3/uL (4.4-10.8)
[2022-12-03 08:31] LABS: Albumin 2.2 g/dL (3.4-5.0); Calcium 6.5 mg/dL (8.5-10.1); Potassium 3.2 mmol/L (3.5-5.1)
[2022-12-03 08:35] LABS: BUN/Creatinine Ratio 16.4; Bilirubin, Total 0.3 mg/dL (0.2-1.0); Total Protein 4.8 g/dL (6.4-8.2)
[2022-12-03 09:12] VITALS: BP 118/83
[2022-12-03] MEDS: ASPirin 81 mg TAB PO SCH (09:49)
[2022-12-03] MEDS: FAMOTIDINE (10MG/ML) 2ML VL IV SCH (09:49)
[2022-12-03 12:48] VITALS: BP 140/84
[2022-12-03 16:52] VITALS: BP 133/84
== END 2022-12-03 18:25 | disposition home or self-care (01) | DRG 420 ==
LOC: ER 22:01 → TELE 12-02 02:27 → TELE-WESTW 12-02 22:05
PROVIDERS: ADMIT Nurse Practitioner Family; ATTEND Internal Medicine
DX: E11.10 Type 2 diabetes mellitus with ketoacidosis without coma (principal); N17.9 Acute kidney failure, unspecified; E11.65 Type 2 diabetes mellitus with hyperglycemia; E78.5 Hyperlipidemia, unspecified; I10 Essential (primary) hypertension; E78.00 Pure hypercholesterolemia, unspecified; Z20.822 Contact with and (suspected) exposure to COVID-19; Z82.49 Family history of ischemic heart disease and other diseases of the circulatory system; Z83.3 Family history of diabetes mellitus; Z79.4 Long term (current) use of insulin
CPT/HCPCS: 36415; 36600; 74176; 80048; 80053; 80061; 80307; 81001; 82010; 82805; 82962; 83605; 83690; 83735; 83930; 84100; 84484; 85025; 85610; 85730; 87040; 87081; 87426; 87804; 90686; 96360; 96361; G0378; J1815; J2405; J3480; J3490; Q0162

== ENCOUNTER 2023-12-30 00:34 | Inpatient (IN) | payer MEDICAID ==
[~2023-12-30] VITALS: Ht 182.9 cm; Wt 105.2 kg
[~2023-12-30 00:34] MED LIST changes: -AMOX-277 PO; -ATOR20TA50 PO; -INSU1INJ19 SC; -METF-370 PO; -METF500T PO
[2023-12-30] MEDS: SODIUM CHLORIDE 0.9% 1,000 ML IV ONE ×4 (01:21→08:18)
[2023-12-30 01:23] LABS: Basophils # (auto) 0 10 ^3/uL (0-0.2); Basophils % (auto) 0.2 % (0.0-2.0); Eosinophils # (auto) 0 10 ^3/uL (0-0.8); Hematocrit 43.9 % (41.0-53.0); Hemoglobin 14.5 g/dL (13.5-17.5); Lymphocytes # (auto) 1.3 10 ^3/uL (0.4-5.4); Lymphocytes % (auto) 15.5 % (10.0-50.0); Mean Corpuscular Hemoglobin 30.3 pg (28.0-32.0); Mean Corpuscular Volume 91.7 fL (80.0-100.0); Monocytes # (auto) 0.6 10 ^3/uL (0-1.3); Monocytes % (auto) 7.5 % (0.0-12.0); Neutrophils # (auto) 6.3 10 ^3/uL (1.6-8.6); Neutrophils % (auto) 76.8 % (37.0-80.0); Red Blood Cells 4.79 10^6/uL (4.5-5.90); Red Cell Distribution Width 16.8 % (11.8-14.3); White Blood Cell 8.3 10^3/uL (4.4-10.8)
[2023-12-30 01:41] LABS: Albumin 4.2 g/dL (3.2-4.8); Alkaline Phosphatase 112 U/L (46-116); Anion Gap 21.00001 (5-15); Aspartate Aminotransferase < 8 U/L (13-40); Blood Urea Nitrogen 20 mg/dL (9-23); Calcium 8.9 mg/dL (8.7-10.4); Chloride 108 mmol/L (98-107); Lipase 41 U/L (12-53); Potassium 3.7 mmol/L (3.5-5.1); Sodium 139 mmol/L (136-145)
[2023-12-30 01:42] LABS: Bilirubin, Total 0.4 mg/dL (0.2-1.0); Total Protein 7.3 g/dL (5.7-8.2)
[2023-12-30 01:44] LABS: Alanine Aminotransferase < 9 U/L (7-40)
[2023-12-30 01:46] LABS: Carbon Dioxide < 10 mmol/L (20-30); Glucose 433 mg/dL (74-106)
[2023-12-30] MEDS: ONDANSETRON HCL 4 MG/2 ML VIAL IV ONE (01:58)
[2023-12-30] MEDS: INSULIN LISPRO (HUMAN) 100 UNITS/ML ML SC ONE (01:59)
[2023-12-30 02:30] VITALS: PULSE 112; RESP 27; O2SAT 100
[2023-12-30] MEDS: SODIUM BICARB 8.4% 50Meq/50ml SYR Vial IV ONE ×2 (02:32→08:17)
[2023-12-30] MEDS: SODIUM CHLORIDE 0.9% 3,000 ML IV ONE (02:33)
[2023-12-30] MEDS: LORazepam 2MG/ML-1ML VIAL IV PRN (04:01)
[2023-12-30 05:00] LABS: Base Excess -9.7 mmol/L (-2.0-2.0)
[2023-12-30 07:05] LABS: Chloride 112 mmol/L (98-107); Potassium 3.3 mmol/L (3.5-5.1)
[2023-12-30 07:06] LABS: Anion Gap 20 (5-15); Carbon Dioxide 14 mmol/L (20-30)
[2023-12-30 07:07] LABS: Calcium 8.9 mg/dL (8.5-10.1)
[2023-12-30 07:12] LABS: BUN/Creatinine Ratio 12.8 (10.0-20.0); Blood Urea Nitrogen 18 mg/dL (9-23)
[2023-12-30 07:18] LABS: Glucose 201 mg/dL (74-106); Sodium 146 mmol/L (136-145)
[2023-12-30] MEDS ORDERED: ACCU-CHEK COMFORT CURVE STRIP VI SCH ×2 (07:30→15:00)
[2023-12-30] MEDS ORDERED: ACETAMINOPHEN 325 MG TAB PO PRN (07:30)
[2023-12-30] MEDS ORDERED: DOCUSATE SOD 100 MG CAP PO PRN (07:30)
[2023-12-30] MEDS ORDERED: NITROGLYCERIN 0.4 MG SL TAB SL PRN (07:30)
[2023-12-30] MEDS ORDERED: INSULIN DRIP 100 UNIT/100ML 100 ML IV SCH (07:30)
[2023-12-30] MEDS ORDERED: HYDROcodone-ACET 5/325MG TAB PO PRN (07:30)
[2023-12-30] MEDS ORDERED: DEXTROSE (50%) 50ML SYRG IV PRN ×3 (07:30→13:45)
[2023-12-30] MEDS ORDERED: MORPHINE SULFATE INJ 2 MG/ml SYRG IV PRN (07:30)
[2023-12-30] MEDS: INSULIN DRIP 100 UNIT/100ML 100 ML IV SCH ×2 (07:45→14:13)
[2023-12-30] MEDS: INSULIN LANTUS (GLARGINE) 1 /0.01ml (100units/ml) SC ONE ×2 (08:16→13:58)
[2023-12-30 08:30] LABS: Urine Bacteria FEW /hpf (None Seen); Urine Blood Negative /uL (Negative); Urine Clarity Clear (Clear); Urine Color Colorless (Yellow); Urine Hyaline Cast MANY /lpf (0 - 2); Urine Mucus FEW (None Seen); Urine Protein, UAD 1+ (Negative); Urine Specific Gravity 1.018 (1.001-1.035); Urine Urobilinogen Normal (Negative); Urine WBC 1 /hpf (0 - 3); Urine pH 5.5 (5.0-8.0)
[2023-12-30 08:46] LABS: Base Excess -11.1 mmol/L (-2.0-2.0)
[2023-12-30] MEDS: ACCU-CHEK COMFORT CURVE STRIP VI SCH (09:12)
[2023-12-30] MEDS: POTASSIUM CHL 20 Meq TABLET PO ONE (09:19)
[2023-12-30] MEDS: LACTATED RINGER'S 1,000 ML IV SCH (09:50)
[2023-12-30 12:01] LABS: Chloride 112 mmol/L (98-107); Potassium 3.5 mmol/L (3.5-5.1); Sodium 146 mmol/L (136-145)
[2023-12-30 12:02] LABS: Anion Gap 22 (5-15); Carbon Dioxide 12 mmol/L (20-30)
[2023-12-30 12:03] LABS: Calcium 8.9 mg/dL (8.5-10.1)
[2023-12-30 12:07] LABS: BUN/Creatinine Ratio 11.5 (10.0-20.0); Blood Urea Nitrogen 15 mg/dL (9-23); Glucose 250 mg/dL (74-106)
[2023-12-30] MEDS: D5W/SOD CHL 0.45% 1,000 ML IV SCH (12:15)
[2023-12-30] MEDS ORDERED: SODIUM CHLORIDE 0.9% 1,000 ML IV SCH (13:30)
[2023-12-31] MEDS: INSULIN DRIP 100 UNIT/100ML 100 ML IV SCH (01:53)
[2023-12-31] MEDS: ONDANSETRON HCL 4 MG/2 ML VIAL IV PRN (04:40)
[2023-12-31 06:52] LABS: Basophils # (auto) 0 10 ^3/uL (0-0.2); Basophils % (auto) 0.4 % (0.0-2.0); Eosinophils # (auto) 0 10 ^3/uL (0-0.8); Eosinophils % (auto) 0.5 % (0.0-7.0); Hemoglobin 13.8 g/dL (13.5-17.5); Lymphocytes # (auto) 1.7 10 ^3/uL (0.4-5.4); Lymphocytes % (auto) 22.3 % (10.0-50.0); Mean Corpuscular Hemoglobin 30.4 pg (28.0-32.0); Mean Corpuscular Hgb Conc. 34.4 g/dL (32.0-36.0); Mean Corpuscular Volume 88.5 fL (80.0-100.0); Monocytes # (auto) 0.8 10 ^3/uL (0-1.3); Monocytes % (auto) 10.3 % (0.0-12.0); Neutrophils % (auto) 66.5 % (37.0-80.0); Red Blood Cells 4.52 10^6/uL (4.5-5.90); Red Cell Distribution Width 17.2 % (11.8-14.3); White Blood Cell 7.6 10^3/uL (4.4-10.8)
[2023-12-31 07:12] LABS: Albumin 3.5 g/dL (3.2-4.8); Alkaline Phosphatase 91 U/L (46-116); Anion Gap 14 (5-15); Aspartate Aminotransferase < 8 U/L (13-40); Blood Urea Nitrogen 10 mg/dL (9-23); Calcium 8.6 mg/dL (8.7-10.4); Carbon Dioxide 18 mmol/L (20-30); Chloride 113 mmol/L (98-107); Glucose 172 mg/dL (74-106); Magnesium 1.7 mg/dL (1.6-2.6); Potassium 2.8 mmol/L (3.5-5.1); Sodium 145 mmol/L (136-145)
[2023-12-31 07:13] LABS: Bilirubin, Total 0.4 mg/dL (0.2-1.0); Total Protein 6.3 g/dL (5.7-8.2)
[2023-12-31 07:17] LABS: Alanine Aminotransferase < 9 U/L (7-40)
[2023-12-31 07:36] VITALS: PULSE 107; RESP 16; O2SAT 97
[2023-12-31] MEDS: INSULIN LANTUS (GLARGINE) 1 /0.01ml (100units/ml) SC SCH ×2 (09:55→22:26)
[2023-12-31] MEDS ORDERED: INSULIN LANTUS (GLARGINE) 1 /0.01ml (100units/ml) SC SCH ×2 (10:00)
[2023-12-31] MEDS ORDERED: DEXTROSE (50%) 50ML SYRG IV PRN (10:45)
[2023-12-31] MEDS: ACCU-CHEK COMFORT CURVE STRIP VI SCH (11:30)
[2023-12-31] MEDS: MAGNESIUM OXIDE 400 MG TAB PO ONE (11:54)
[2023-12-31] MEDS: POTASSIUM CHL 20 Meq TABLET PO ONE (11:55)
[2023-12-31] MEDS: InsuLIN REG 1unit/0.01ml Soln (100units/ml) SC SCH ×2 (11:55→22:28)
[2023-12-31] MEDS: D5W/SOD CHL 0.45%/KCL 20MEQ 1,000 ML IV SCH (15:48)
[2023-12-31 19:00] VITALS: BP 152/81; PULSE 102; PULSE 107; RESP 16; RESP 18; TEMP 98.9
[2023-12-31 20:00] VITALS: BP 146/86; PULSE 103; PULSE 107; PULSE 108; RESP 16; RESP 18; TEMP 99.5; O2SAT 96
[2023-12-31 22:00] VITALS: BP 146/86; PULSE 108; RESP 18; TEMP 99.5; O2SAT 97
[2024-01-01] VITALS (8 sets, daily range): BP systolic 122–154; BP diastolic 85–93; PULSE 76–106; RESP 17–20; TEMP 98–98.9; O2SAT 96–98
[2024-01-01 06:31] LABS: Basophils # (auto) 0 10 ^3/uL (0-0.2); Basophils % (auto) 0.7 % (0.0-2.0); Eosinophils # (auto) 0 10 ^3/uL (0-0.8); Eosinophils % (auto) 0.3 % (0.0-7.0); Hematocrit 41.4 % (41.0-53.0); Hemoglobin 13.6 g/dL (13.5-17.5); Lymphocytes # (auto) 1.4 10 ^3/uL (0.4-5.4); Lymphocytes % (auto) 28.6 % (10.0-50.0); Mean Corpuscular Hemoglobin 29.7 pg (28.0-32.0); Mean Corpuscular Hgb Conc. 32.9 g/dL (32.0-36.0); Mean Corpuscular Volume 90.2 fL (80.0-100.0); Monocytes # (auto) 0.5 10 ^3/uL (0-1.3); Monocytes % (auto) 10.8 % (0.0-12.0); Neutrophils # (auto) 2.9 10 ^3/uL (1.6-8.6); Neutrophils % (auto) 59.6 % (37.0-80.0); Nucleated Red Blood Cells % 0.1 %; Red Blood Cells 4.59 10^6/uL (4.5-5.90); Red Cell Distribution Width 16.6 % (11.8-14.3); White Blood Cell 4.8 10^3/uL (4.4-10.8)
[2024-01-01 06:50] LABS: Albumin 3.4 g/dL (3.2-4.8); Alkaline Phosphatase 85 U/L (46-116); Anion Gap 13 (5-15); Aspartate Aminotransferase 9 U/L (13-40); BUN/Creatinine Ratio 5.4 (10.0-20.0); Blood Urea Nitrogen 6 mg/dL (9-23); Calcium 8.6 mg/dL (8.5-10.1); Carbon Dioxide 21 mmol/L (20-30); Chloride 110 mmol/L (98-107); Cholesterol 122 mg/dL (< 200); Glucose 261 mg/dL (74-106); HDL Cholesterol 28 mg/dL (40-59); LDL Cholesterol 66 mg/dL (< 100); Potassium 3.2 mmol/L (3.5-5.1); Sodium 144 mmol/L (136-145); Triglycerides 114 mg/dL (< 150)
[2024-01-01 06:51] LABS: Bilirubin, Total 0.5 mg/dL (0.2-1.0); Total Protein 5.8 g/dL (5.7-8.2)
[2024-01-01 06:56] LABS: Alanine Aminotransferase < 9 U/L (7-40)
[2024-01-01] MEDS ORDERED: INFLUENZA QUAD 2023-2024 0.5 ML SYRG IM ONE (07:45)
[2024-01-01 07:54] LABS: Magnesium 1.7 mg/dL (1.6-2.6)
[2024-01-01] MEDS: POTASSIUM CHL 20 Meq TABLET PO ONE (11:58)
[2024-01-01] MEDS: SODIUM CHLORIDE 0.9% 1,000 ML IV SCH (11:59)
[2024-01-01] MEDS: INSULIN LANTUS (GLARGINE) 1 /0.01ml (100units/ml) SC ONE (12:07)
[2024-01-01] MEDS: MAGNESIUM OXIDE 400 MG TAB PO SCH (21:51)
[2024-01-01] MEDS: INSULIN LANTUS (GLARGINE) 1 /0.01ml (100units/ml) SC SCH (21:51)
[2024-01-02] VITALS (8 sets, daily range): BP systolic 128–149; BP diastolic 80–93; PULSE 67–95; RESP 17–18; TEMP 98.2–98.9; O2SAT 96–98
[2024-01-02 06:12] LABS: Anion Gap 12 (5-15); Carbon Dioxide 22 mmol/L (20-30); Chloride 109 mmol/L (98-107); Potassium 2.7 mmol/L (3.5-5.1); Sodium 143 mmol/L (136-145)
[2024-01-02 06:13] LABS: Calcium 8.2 mg/dL (8.7-10.4)
[2024-01-02 06:18] LABS: Magnesium 1.5 mg/dL (1.6-2.6)
[2024-01-02 06:24] LABS: BUN/Creatinine Ratio 6.3 (10.0-20.0); Blood Urea Nitrogen < 5 mg/dL (9-23); Glucose 131 mg/dL (74-106)
[2024-01-02] MEDS: MAGNESIUM SULFATE 1GM/100ML 100 ML IV SCH (09:22)
[2024-01-02] MEDS: POTASSIUM CHL 20 Meq TABLET PO ONE (09:22)
[2024-01-02 13:52] LABS: Chloride 108 mmol/L (98-107); Potassium 3.2 mmol/L (3.5-5.1); Sodium 140 mmol/L (136-145)
[2024-01-02 13:53] LABS: Anion Gap 9 (5-15); Carbon Dioxide 23 mmol/L (20-30)
[2024-01-02 13:54] LABS: Calcium 8.1 mg/dL (8.7-10.4)
[2024-01-02 13:58] LABS: Glucose 177 mg/dL (74-106)
[2024-01-02 14:00] LABS: BUN/Creatinine Ratio 6.7 (10.0-20.0); Blood Urea Nitrogen < 5 mg/dL (9-23)
[2024-01-03 05:00] VITALS: BP 119/81; PULSE 86; RESP 18; TEMP 98.3; O2SAT 96
[2024-01-03 08:00] VITALS: PULSE 95
[2024-01-03 08:30] VITALS: BP 156/93; PULSE 91; RESP 17; TEMP 98.3; O2SAT 99
[2024-01-03 09:34] LABS: Chloride 105 mmol/L (98-107); Potassium 3.3 mmol/L (3.5-5.1); Sodium 141 mmol/L (136-145)
[2024-01-03 09:35] LABS: Anion Gap 9 (5-15); Carbon Dioxide 27 mmol/L (20-30)
[2024-01-03 09:36] LABS: Calcium 8.7 mg/dL (8.5-10.1)
[2024-01-03 09:40] LABS: Glucose 213 mg/dL (74-106)
[2024-01-03 09:41] LABS: BUN/Creatinine Ratio 6.3 (10.0-20.0); Blood Urea Nitrogen 5 mg/dL (9-23)
[2024-01-03] MEDS: POTASSIUM CHL 20 Meq TABLET PO ONE (11:24)
[2024-01-03] MEDS: INFLUENZA QUAD 2023-2024 0.5 ML SYRG IM ONE (11:32)
[2024-01-03 12:36] VITALS: BP 140/87; PULSE 93; RESP 18; TEMP 97.8; O2SAT 98
== END 2024-01-03 12:44 | disposition home or self-care (01) | DRG 422 ==
LOC: ER 00:34 → TELE 07:29 → TELE-WESTW 12-31 18:39
PROVIDERS: ADMIT Nurse Practitioner Family; ATTEND Internal Medicine Geriatric Medicine
DX: E86.0 Dehydration (principal); N17.0 Acute kidney failure with tubular necrosis; E11.10 Type 2 diabetes mellitus with ketoacidosis without coma; E78.5 Hyperlipidemia, unspecified; E83.42 Hypomagnesemia; R00.0 Tachycardia, unspecified; E87.6 Hypokalemia; Z91.148 Patient's other noncompliance with medication regimen for other reason
CPT/HCPCS: 36415; 36600; 71045; 80048; 80053; 80061; 81001; 82010; 82805; 82962; 83036; 83605; 83690; 83735; 83880; 84484; 85025; 90686; 96365; 96366; 96367; 96372; 96375; 96376; 99291; G0378; J1815; J2405